=== PATIENT | male | born 1945 | race Caucasian/White ===

== ENCOUNTER 2020-11-30 17:28 | Emergency (ER) | payer MEDICARE ==
[2020-11-30 17:52] VITALS: TEMP 97.9
[2020-11-30] MEDS ORDERED: DIPH,PERTUS(ACELL)TETVAC-LF 0.5 ML VIAL IM ONE (19:59)
--- NOTE | 2020-11-30 20:00 | ED ---
General Adult HPI - General Chief complaint: Fall Stated complaint: fell/hit head Time Seen by Provider: 11/30/20 19:44 Source: patient, family, RN notes reviewed, old records reviewed Mode of arrival: wheelchair Limitations: no limitations - History of Present Illness Initial comments: 75-year-old male presents status post fall with head injury. Patient fell approximately 30 minutes prior to arrival. He is on Xarelto history of DVT. He denies LOC. He has no complaints. He states he tripped on a curb falling and striking the right side of his had. There is minimal hematoma and abrasion at the site of injury. No other injuries reported. No head neck or back pain. - Related Data Allergies Allergy/AdvReac Type Severity Reaction Status Date / Time No Known Allergies Allergy Verified 11/30/20 17:52 Review of Systems ROS Statement: Those systems with pertinent positive or pertinent negative responses have been documented in the HPI. ROS Other: All systems not noted in ROS Statement are negative. Past Medical History Past Medical History: Cancer, Deep Vein Thrombosis (DVT), Hypertension Additional Past Medical History / Comment(s): prostate cancer History of Any Multi-Drug Resistant Organisms: None Reported Past Surgical History: Orthopedic Surgery, Prostate Surgery Past Psychological History: No Psychological Hx Reported Smoking Status: Never smoker Past Alcohol Use History: None Reported Past Drug Use History: None Reported General Exam Limitations: no limitations General appearance: alert, in no apparent distress Head exam: Present: normocephalic, other (Right frontal temporal hematoma and very superficial abrasion) ENT exam: Present: normal exam, normal oropharynx Neck exam: Present: normal inspection. Absent: tenderness, meningismus Respiratory exam: Present: normal lung sounds bilaterally. Absent: respiratory distress, wheezes Cardiovascular Exam: Present: regular rate, normal rhythm GI/Abdominal exam: Present: soft. Absent: distended, tenderness, guarding, rebound Extremities exam: Present: normal inspection, normal capillary refill. Absent: pedal edema Back exam: Present: normal inspection. Absent: full ROM, tenderness Neurological exam: Present: alert, oriented X3, CN II-XII intact, normal gait. Absent: motor sensory deficit Psychiatric exam: Present: normal affect, normal mood Skin exam: Present: warm, dry, intact. Absent: cyanosis, diaphoretic Course Vital Signs 11/30/20 11/30/20 17:47 20:28 Temperature 97.9 F Pulse Rate 61 57 L Respiratory 18 16 Rate Blood Pressure 166/83 158/84 O2 Sat by Pulse 98 98 Oximetry Medical Decision Making - Medical Decision Making CT performed, negative for intracranial hemorrhage or mass effect. Cervical spine negative for fracture subluxation. Patient given strict return parameters, will be observed closely and will return as needed. Will follow with primary care physician. Disposition Clinical Impression: Fall, Concussion Disposition: HOME SELF-CARE Condition: Good Instructions (If sedation given, give patient instructions): Concussion (ED) Is patient prescribed a controlled substance at d/c from ED?: No Referrals: Raquel Garcia MD [Primary Care Provider] - 1-2 days Time of Disposition: 21:03
[2020-11-30 20:51] VITALS: BP 158/84; PULSE 57; RESP 16
--- NOTE | 2020-11-30 21:00 | CT ---
EXAMINATION TYPE: CT brain terry wo con DATE OF EXAM: 11/30/2020 COMPARISON: None. HISTORY: fell hitting head on cement CT DLP: 1311.7 mGycm Automated exposure control for dose reduction was used. TECHNIQUE: CT scan of the head and cervical spine are performed without contrast. FINDINGS: There is no acute intracranial hemorrhage, mass effect, or midline shift identified. The ventricles and sulci are within normal limits in size. The globes are intact and the visualized sin uses are clear. There is large area of low-attenuation in the left frontal lobe and may represent a l arge arachnoid cyst or may be related to old infarct. There is slight ex vacuo dilatation of the ante rior horn of the right lateral ventricle. There is right frontal cerebral atrophy. Cervical spine is visualized in its entirety from C1 through upper thoracic levels and demonstrates s atisfactory alignment without evidence of acute fracture or dislocation. Prevertebral soft tissue ap pears within normal limits. The C1-C2 articulation is unremarkable. IMPRESSION: 1. There is no acute fracture or dislocation evident in the cervical spine. 2. No acute intracranial hemorrhage, mass effect, or midline shift is seen. 3. Large area of low-attenuation in the right frontal lobe may be related to old infarct or large linda chnoid cyst.
== END 2020-11-30 21:23 | disposition home or self-care (01) ==
LOC: EC 17:28
DX: S06.0X9A Concussion with loss of consciousness of unspecified duration, initial encounter (principal); I10 Essential (primary) hypertension; Z86.718 Personal history of other venous thrombosis and embolism; Z85.46 Personal history of malignant neoplasm of prostate; Z79.01 Long term (current) use of anticoagulants; Z23 Encounter for immunization; W01.198A Fall on same level from slipping, tripping and stumbling with subsequent striking against other object, initial encounter
CPT/HCPCS: 70450; 72125; 90471; 90715; 99284